=== PATIENT | male | born 2000 | race Caucasian/White ===

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

== ENCOUNTER → 2023-06-01 | Outpatient (CLI) | payer MEDICAID ==
[~2023-06-01] MED LIST changes: +ESSENTIAL DAIL1 EACH PO
== END ==
LOC: RAD 14:28
DX: R07.9 Chest pain, unspecified (principal); R06.02 Shortness of breath